=== PATIENT | male | born 1945 | race Caucasian/White ===

== ENCOUNTER → 2016-11-05 | Outpatient (CLI) | payer MEDICARE, OTHER ==
[~2016-11-05] MED LIST: AMLO10TA2 PO; ATEN1TAB73; ATEN50TA PO; FENO1TAB76 PO; IPRAAER IN; IPRAAER INH; LISI40TA PO; NORV2.5T11; VENTAER INH; [UNRECOGNIZED DRUG - OTHER]
[2016-11-05 10:58] LABS: BLOOD GAS BASE EXCESS -2.3 mmol/L (-2-2); BLOOD GAS CARBOXYHEMOGLOBIN 6.9 % (0-4); BLOOD GAS HCO3 22 mmol/L (22-26); BLOOD GAS METHEMOGLOBIN 1.1 % (0-2); BLOOD GAS O2 HGB SATURATION 88 % (90-100); BLOOD GAS OXYGEN CONTENT 18.8 Vol % (12.0-20.0); BLOOD GAS PCO2 40 mmHg (38-42); BLOOD GAS PO2 80 mmHg (61-120); BLOOD GAS TOTAL HGB 15.2 G/DL (12.0-16.0); TEMP CORR TO 98.6
[2016-11-05 10:59] LABS: CRITICAL VALUE YES; DRAW SITE RT RADIAL; FIO2 21 %; NUMBER OF ARTERIAL PUNCTURES 1; STAT NO; ULNAR PULSE PRESENT
--- NOTE | 2016-11-07 08:51 | RSPPFT ---
DATE OF PROCEDURE: 11/05/16 COMMENTS: VOLUMES DYNAMIC: FVC normal; FEV1 moderately reduced. STATIC: VTG mildly increased; RV moderately increased; THE LUNGS ARE CLEAR normal. FLOWS: FEV1% and FEF 25-75 severely reduced. DIFFUSION: Moderately reduced. FLOW VOLUME LOOP: Pattern of variable intrathoracic airways obstruction. IMPRESSION: Moderate to severe obstructive ventilatory defect with hyperinflation and reduction in diffusion consistent with emphysema. There is minimal improvement post-bronchodilator. Airways resistance is increased.
== END ==
LOC: HRSP 10:27
PROVIDERS: ATTEND Internal Medicine
DX: J44.9 Chronic obstructive pulmonary disease, unspecified (principal)
CPT/HCPCS: 36600; 82805; 94060; 94620; 94726; 94729

== ENCOUNTER 2016-11-20 06:29 | Day surgery (SDC) | payer MEDICARE, OTHER ==
--- NOTE | 2016-11-13 09:58 | MB ---
cc: Mary HARDEN ANTHONY A. MD DATE OF CONSULTATION 10/31/2016 REASON FOR ADMISSION Outpatient needle aspiration biopsy of a lung nodule. HISTORY Mr. 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 He has tried multiple times in the past to quit but has been unsuccessful. Because of his smoking history, he has had several scans beginning in 2012 at which time he had several small nodules that were not metabolically active on PET scan. Followup in 2013 was stable. Followup now in early September 2016 - He has a new left upper lobe nodule 2 cm with an irregular margin that is suspicious for malignancy, very minimal change on the other nodules. The patient has a chronic cough but no purulent sputum or hemoptysis. No chest pain. He does have dyspnea on exertion and uses Combivent with some relief. He has no significant prior cardiovascular history, although he has never had any formal cardiovascular evaluation. He does have coronary calcifications on his recent CT. PAST MEDICAL HISTORY 1. Hypertension. 2. 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 3. A parotid gland removed in his 40s which was benign. No other surgeries. MEDICATIONS 1. Lisinopril. 2. Amlodipine. 3. Atenolol. 4. Pravastatin. 5. Combivent. ALLERGIES None. FAMILY HISTORY Father of heart disease. Mother lived to , of natural causes. Two family members of lung cancer. A brother of heart disease. Has two sons in good health, one in [place], one in [place]. 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 He is , lives alone. Drinks one to two beers a night. No animal exposures. REVIEW OF SYSTEMS No sudden weight loss. Appetite is fine. He has had cataracts removed. No anginal chest pain or chronic edema. No orthopnea or PND. No abdominal complaints. No musculoskeletal complaints. PHYSICAL EXAMINATION Vital Signs: 130/80, pulse 68, temp is 98, respiratory rate 18, sat 94% on room air. HEENT: Sclerae anicteric. Pharynx is clear. Neck: Neck veins are flat. No adenopathy in the neck or supraclavicular region. Chest: Only mildly congested. No basilar rales. Mild wheezes. Heart: No harsh murmur. Regular rhythm. No audible S3. Extremities: No edema or cyanosis. No clubbing. IMAGING STUDIES CT scan is reviewed thoroughly with the patient. He has a very suspicious left upper lobe lesion which is new compared to previous and in light of his prior smoking history highly suspicious for malignancy. PLAN We are scheduling him for pulmonary functions and then to follow a needle aspiration biopsy of the lung. Further diagnostic and/or therapeutic intervention will depend on the results of these initial diagnostic studies. R. MD PATRICK Rosa/ANTONIA /10:59 AM /9:56 AM
[~2016-11-20] VITALS: Ht 177.8 cm; Wt 80.0 kg
[2016-11-20] VITALS (8 sets, daily range): BP systolic 109–142; BP diastolic 67–76; PULSE 55–72; RESP 16–20; TEMP 98–98.3; O2SAT 90–97
[~2016-11-20 06:29] MED LIST changes: -AMLO10TA2 PO; -ATEN50TA PO; -IPRAAER INH; -LISI40TA PO; -[UNRECOGNIZED DRUG - OTHER]
[2016-11-20] MEDS ORDERED: LIDOCAINE 1%/EPINEPHrine 1:100,000 SOLN 20 ML VIAL ONE (07:11)
[2016-11-20] MEDS ORDERED: SODIUM CHLOR 0.9% 1000 ML IV SCH (07:15)
[2016-11-20] MEDS ORDERED: IPRAAER INH (07:49)
[2016-11-20] MEDS ORDERED: ATEN50TA PO (07:49)
[2016-11-20] MEDS ORDERED: LISI40TA PO (07:49)
[2016-11-20] MEDS ORDERED: AMLO10TA2 PO (07:49)
[2016-11-20] MEDS ORDERED: [UNRECOGNIZED DRUG - OTHER] (07:49)
[2016-11-20 08:08] LABS: APTT (PATIENT) 26.2 SEC (24.3-30.1); PROTHROMBIN TIME - PATIENT 10.9 SEC (9.8-11.6)
[2016-11-20] MEDS ORDERED: fentaNYL CITRATE 250 MCG/5 ML AMP ONE (08:40)
[2016-11-20] MEDS ORDERED: MIDAZOLAM HCL 5 MG/5 ML VIAL ONE (08:40)
[2016-11-20] MEDS ORDERED: oxyCODONE/ACETAMINOPHEN 5 MG/325 MG TAB PO PRN (09:45)
--- NOTE | 2016-11-20 10:42 | RADRPT ---
EXAM DATE/TIME: 11/20/2016 09:37 [facility] COMPARISON: CT NEEDLE BIOPSY LUNG, LEFT, November 20, 2016, 8:51. INDICATIONS : Post left lung biopsy. MEDICAL HISTORY : Hypertension. Hypercholesterolemia. SURGICAL HISTORY : None. ENCOUNTER: Subsequent ACUITY: 1 day PAIN SCORE: 0/10 LOCATION: Bilateral chest FINDINGS: A single view of the thorax demonstrates chronic interstitial changes. The patient's known left lung mass is not visible. There is no pneumothorax seen post biopsy. CONCLUSION: 1. No pneumothorax identified post left lung biopsy. Brien Ang MD on November 20, 2016 at 10:36 Board Certified Radiologist. This report was verified electronically.
--- NOTE | 2016-11-20 16:22 | RADRPT ---
EXAM DATE/TIME: 11/20/2016 08:51 [facility] COMPARISON: No previous studies available for comparison. INDICATIONS : Left lung mass. SEDATION TIME: 30 minutes BIOPSY SITE: Left lung MEDICATION(S): 1.) 1 mg midazolam (Versed) IV 2.) 50 mg fentanyl (Sublimaze) IV DEVICE(S): 1.) 18 gauge Johnson blunt needle 2.) 20 gauge Temno core biopsy needle MEDICAL HISTORY : Hypertension. Chronic obstructive pulmonary disease. Skin cancer. SURGICAL HISTORY : Left parotid removed. ENCOUNTER: Initial ACUITY: 1 day PAIN SCORE: 0/10 LOCATION: Left chest A total of two core specimen(s) were obtained and sent to the laboratory for pathologic evaluation. PROCEDURE: 1. CT guided lung biopsy of left apical nodule. 2. Conscious sedation with continuous EKG and oximetry monitoring. 3. EKG and oximetry remained stable throughout the procedure. Prior to the procedure informed consent was obtained. Any appropriate prior imaging studies were rev iewed. Using automated exposure control and adjustment of the mA and/or kV according to patient size, radiation dose was kept as low as reasonably achievable to obtain optimal diagnostic quality images. The site was prepped in a sterile fashion. Full sterile technique was used, including cap, mask, reed rile gloves and gown and a large sterile sheet. Hand hygiene and 2% chlorhexidine and/or betadine/al cohol prep was utilized per protocol for cutaneous antisepsis. The skin and subcutaneous tissues wer e infiltrated with local anesthetic solution. With CT guidance the previously identified target was localized. Biopsy was performed using the presc ribed needle as above. Adequate hemostasis was obtained with compression at the puncture site. Follow-up CT scan reveals no pneumothorax. Conscious sedation was performed with the prescribed dosages and duration as above in the presence of an independent trained radiology nurse to assist in the monitoring of the patient. EKG and oximetry remained stable throughout the procedure. The patient tolerated the procedure well and there were no complications. The patient was sent to Radiology Outpatient Unit in stable condition. CONCLUSION: Uncomplicated CT guided biopsy. Yogi Mazariegos MD on November 20, 2016 at 16:19 Board Certified Radiologist. This report was verified electronically.
== END 2016-11-20 13:45 | disposition home or self-care (01) ==
LOC: HRAD 06:29 → HRIP 06:33 → EDSTATUS 07:00 → HRAD 13:45
PROVIDERS: ATTEND Internal Medicine
DX: R91.1 Solitary pulmonary nodule (principal); J44.9 Chronic obstructive pulmonary disease, unspecified; I10 Essential (primary) hypertension; E78.00 Pure hypercholesterolemia, unspecified; Z72.0 Tobacco use; Z85.828 Personal history of other malignant neoplasm of skin
CPT/HCPCS: 32405; 71010; 77012; 85610; 85730; 88305; 88341; 88342; J2250; J3010

== ENCOUNTER 2016-12-27 12:45 | Day surgery (SDC) | payer MEDICARE, OTHER ==
[~2016-12-27 12:45] MED LIST changes: +AMLO10TA2 PO; -ATEN1TAB73; +ATEN50TA PO; -FENO1TAB76 PO; -IPRAAER IN; +IPRAAER INH; +LISI40TA PO; -NORV2.5T11; -VENTAER INH; +[UNRECOGNIZED DRUG - OTHER]
[2016-12-27 14:45] VITALS: BP 186/78; PULSE 68; RESP 17; TEMP 97.5; O2SAT 98
[2016-12-27 15:00] VITALS: BP 152/62; PULSE 69; RESP 18; O2SAT 98
--- NOTE | 2016-12-27 15:05 | RADRPT ---
EXAM DATE/TIME: 12/27/2016 13:43 [facility] COMPARISON: EXTERNAL COMPARISON: CT CONSULTATION, April 15, 2013, 14:39. [facility], PET/CT - TUMOR METABOLISM, Nov 29 2016 INDICATIONS : Right parotid mass. MEDICAL HISTORY : Hypercholesterolemia. Hypertension. Lung cancer. SURGICAL HISTORY : Left parotid removed. Lung biopsy. ENCOUNTER: Initial ACUITY: 1 day PAIN SCORE: 0/10 LOCATION: Right neck ORGAN: Right parotid. SPECIMENS: Two core specimen(s) submitted for pathologic evaluation. DEVICE: 18 gauge Temno needle Post procedure scanning reveals no hematoma or other complication. The possibility does exist that the tissue obtained will be non-diagnostic. If the sample is non-sushil gnostic a repeat biopsy or surgical biopsy may need to be performed. TECHNIQUE: 1. Ultrasound guidance for needle biopsy. 2. Needle biopsy. The risks, benefits, and alternatives to ultrasound guided needle biopsy were explained to the patien t in detail including the risk of bleeding and infection. Written and verbal informed consent was ob tained. With the patient on the ultrasound table, images were obtained. Overlying skin was prepped and drape d in the usual sterile fashion and Lidocaine was utilized as a local anesthetic. 2, 18 gauge cores were obtained and direct ultrasound visualization. Four slides were submitted. The patient tolerated the procedure well and left the ultrasound suite in stable condition. CONCLUSION: Uncomplicated ultrasound guided needle biopsy of PET positive adenopathy right parotid region. Benedict Ang MD FACR on December 27, 2016 at 15:01 Board Certified Radiologist. This report was verified electronically.
[2016-12-27] MEDS ORDERED: LIDOCAINE HCL 1% PF 30 ML VIAL ONE (16:29)
[2016-12-27] MEDS ORDERED: SODIUM BICARBONATE 8.4% INJ 50 ML ONE (16:30)
== END 2016-12-27 15:07 | disposition home or self-care (01) ==
LOC: HRAD 12:45 → HRIP 12:46 → HRAD 15:07
PROVIDERS: ATTEND Internal Medicine Hematology & Oncology
DX: D11.0 Benign neoplasm of parotid gland (principal)
CPT/HCPCS: 42400; 76942; 88305; 88307; 88333